=== PATIENT | male | born 1955 | race Caucasian/White ===

== ENCOUNTER 2017-03-28 08:20 | Day surgery (SDC) | payer OTHER ==
[2017-03-25 09:22] LABS: HEMATOCRIT 45.8 % (40.0-51.0); HEMOGLOBIN 15.5 g/dL (13.6-17.8)
[2017-03-25 09:31] LABS: CALCIUM, SERUM 9.1 MG/DL (8.5-10.4); CHLORIDE, SERUM 103 MMOL/L (96-112); CREATININE 1.14 MG/DL (0.70-1.30); GFR AFRICAN AMERICAN 79 ML/MIN (>=60); GFR NON AFRICAN AMERICAN 68 ML/MIN (>=60); POTASSIUM, SERUM 5.5 MMOL/L (3.5-5.3); SODIUM, SERUM 136 MMOL/L (135-148)
[2017-03-25 09:32] LABS: BUN (BLOOD UREA NITROGEN) 10 MG/DL (6-23); CO2 (CARBON DIOXIDE) 27 MMOL/L (24-34); GLUCOSE, SERUM 137 MG/DL (60-99)
--- NOTE | ~2017-03-28 | OP ---
Record Of Operation [facility] [address] [place]. 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 PROCEDURE: 1. Ultrasound-guided percutaneous access, left superficial femoral artery. 2. Left leg arteriogram. 3. Percutaneous thrombectomy left limb of the aortic stent graft (Jetstream 2.4/3.4, thrombectomy catheter). SURGEON: Maris Rocha M.D. ANESTHESIA: Local with MAC. ESTIMATED BLOOD LOSS: 25 mL. CONTRAST: 38 mL. IV FLUIDS: 600 mL. COMPLICATIONS: None. INDICATION: Mr. Mccray is a pleasant 62-year-old man with a prior history of endovascular repair of abdominal aortic aneurysm with a bifurcated stent graft. His left limb had previously occluded and he underwent open thrombectomy. His limb re-occluded and has been that way for well over a year. Apparently, he developed worsening ischemic symptoms in the left leg. I talked to him extensively beforehand that his best option was a femoral-to- femoral artery bypass given the recurrent nature of the occlusion of the limb. However, he wished to have an attempt percutaneous revascularization prior to undergoing any surgical revascularization. As a result, he is brought today for arteriogram and possible percutaneous thrombectomy. DETAILS OF PROCEDURE: After informed consent was obtained, the patient was brought to the endovascular suite and placed in supine position. After administration of IV sedation, he was prepped and draped in usual sterile fashion. A time-out was performed. I commenced the procedure with ultrasound-guided percutaneous access of the left SFA. It was occluded under ultrasound. I accessed with a micropuncture needle and passed a micropuncture wire through the occluded SFA in to the common femoral artery. I then placed a micropuncture sheath. 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 I also noted, however, is that the common femoral was occluded as well as superficial femoral artery. I was able to advance a Glidewire and then upsized to a 5- Record Of Operation [facility] [address] [place]. [address] NAME: ALFRED MCCRAY : 53 STATUS : [facility]#: [id number] AGE: 62 ADM/REG DATE : 03/28/17 MR#: [id number] REPORT SERV DATE: 03/31/17 DICTATED BY: MARIS ROCHA DATE: 03/31/17 REPORT STATUS : Draft TRANSCRIBED BY: MODL DATE: 03/31/17 Syriac sheath. Using a bur 2 and a Glidewire, I was able to navigate through the occluded limb of the aortic stent graft. I advanced the bur 2 into the abdominal aorta. Abdominal aortogram was performed, which showed good position of the aortic stent graft. There was no endoleak. There was good flow in the aortic portion and the right limb of the aortic stent graft. However, the left limb was chronically occluded. There was reconstitution of the profunda via extensive collaterals from the right side. After that, we systemically heparinized. I replaced the Glidewire and upsized to a 7-Syriac sheath. I then replaced the catheter and exchanged for a Spartacore wire. I then used the [employer] Navitus 2.4/3.4 catheter for thrombectomy of the occluded left limb of the bypass graft. This was largely successful creating patent flow lumen through the occluded left limb of the aortic stent graft. There was also a self-expanding stent in place in the proximal external iliac artery. However, there was still persistent chronic thrombus and filling defects throughout the distal external iliac, as well as the proximal portion of the limb and the common femoral artery. I did not see any meaningful percutaneous solution to this problem given the extensive amount of occlusion. He really needs revascularization from the right side to the left profunda. As a result, the procedure was terminated. Wires and catheters were removed. A 7-Syriac sheath was removed and manual pressure held on the puncture site for hemostasis. Sterile dressings were applied. The patient tolerated the procedure well without complications. I was present for this entire case as dictated. As indicated, he needs a [id number] fem-fem bypass graft with common femoral endarterectomy to restore flow to his common femoral and deep femoral arteries at least with potential intervention on the SFA at the same time. JOSE A/DANNY Maris Rocha M.D. / [id number] CC: Jarrod Bai JAMES WILIAM
[~2017-03-28 08:20] MED LIST: ASAB PO; BREO ELLIPTA INH; C25 PO; C5; C5 PO; ENDOCET1 TAB PO; NEUR300 PO; NORV10 PO; PCET PO; PRIN20 PO; RISP1 PO; [UNRECOGNIZED DRUG - OTHER] INH
[2017-03-28] MEDS ORDERED: LIPITOR40 PO (16:40)
== END 2017-03-28 17:00 | disposition home or self-care (01) ==
LOC: SDC 08:20 → SSU1 15:46
PROVIDERS: Surgery
PROC: B40GYZZ Plain Radiography of Left Lower Extremity Arteries using Other Contrast (ICD-10-PCS; principal; 2017-03-28 10:30)
PROC: 04CY3ZZ Extirpation of Matter from Lower Artery, Percutaneous Approach (ICD-10-PCS; 2017-03-28 10:30)
PROC: 3E05317 Introduction of Other Thrombolytic into Peripheral Artery, Percutaneous Approach (ICD-10-PCS; 2017-03-28 10:30)
DX: T82.868A Thrombosis due to vascular prosthetic devices, implants and grafts, initial encounter (principal); I70.92 Chronic total occlusion of artery of the extremities; I70.612 Atherosclerosis of nonbiological bypass graft(s) of the extremities with intermittent claudication, left leg; I71.4 Abdominal aortic aneurysm, without rupture; I10 Essential (primary) hypertension; E78.00 Pure hypercholesterolemia, unspecified; J44.9 Chronic obstructive pulmonary disease, unspecified; M54.5 Low back pain; H26.9 Unspecified cataract; F41.9 Anxiety disorder, unspecified; F32.9 Major depressive disorder, single episode, unspecified; F20.9 Schizophrenia, unspecified; Z88.5 Allergy status to narcotic agent; Z79.82 Long term (current) use of aspirin; Z79.51 Long term (current) use of inhaled steroids; Z79.899 Other long term (current) drug therapy; Z98.41 Cataract extraction status, right eye; Z87.891 Personal history of nicotine dependence; Z96.1 Presence of intraocular lens; Z98.890 Other specified postprocedural states
CPT/HCPCS: 36200; 37184; 75625; 75710; 80048; 84132; 85014; 85018; 93005; 94640; A9270-GY; C1714; C1769; C1887; C1894; J0690; J2250; J3010; Q9966